=== PATIENT | male | born 1995 | race Caucasian/White ===

== ENCOUNTER 2020-09-14 07:43 | Day surgery (SDC) | payer OTHER ==
[~2020-09-14] VITALS: Ht 182.9 cm; Wt 104.3 kg
[~2020-09-14 07:43] MED LIST: CYCLOBENZAPRINE10 MG PO; IBUPROFEN200 M1 PO; MEN'S ONE DAIL1 EACH PO; VITAMIN D310 MC4 PO
[2020-09-14] MEDS ORDERED: TYLENOL EXTRA500 MG PO (08:02)
--- NOTE | 2020-09-14 08:51 | NUR ---
09/14/20 0851 TAYLOR ART 0844-PATIENT ARRIVED TO PACU. DROWSY, RESPONDS TO VERBAL AN TACTILE STIMULATION. ON 3L 02 NC. BREATHING EVEN AND UNLABORED.
--- NOTE | 2020-09-14 12:36 | OR ---
[facility] [address], [place] [address] Signed DATE OF OPERATION: 09/14/2020 SURGEON: Zina Cesar MD PREOPERATIVE DIAGNOSES: 1. Gastroesophageal reflux disease. 2. Heartburn. 3. Ibuprofen. POSTOPERATIVE DIAGNOSES: 1. Mild to moderate gastroduodenitis. 2. Small hiatal hernia. 3. Retained food in stomach. PROCEDURE: EGD with CLOtest and biopsies of the antrum. ESTIMATED BLOOD LOSS: None. INDICATIONS: Claudia is a 25-year-old young man, who was asked to see me for upper endoscopy. He is describing acid reflux and heartburn. He said he is using Pepcid and Tums with moderate results. He has been using ibuprofen for various aches and pains. 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 I met with Claudia in the office and I gave him a pamphlet on upper endoscopy. We had reviewed the nature of the test along with the risk including, but not limited to gas bloating, crampy abdominal pain, bleeding, perforation requiring surgery, and missed diagnosis. He also understands the need for IV conscious sedation. He had expressed understanding and wished to proceed. PROCEDURE NOTE: Claudia was taken into our endoscopy suite and placed in a supine semi-recumbent position. The posterior oropharynx was anesthetized with lidocaine spray. A bite block was utilized for the case. He was given 7 mg of Versed and 100 mcg of fentanyl to cover the case. The adult gastroscope was introduced and advanced out into the third portion of the duodenum. Unfortunately, he had a moderate amount of retained food in the stomach. It took a few minutes to get past the food and finally into the pyloric bulb and into the duodenum. The duodenum was unremarkable. The pyloric bulb showed patchy erythematous changes but no ulcerations. We went to take a biopsy but our scope slipped back into the antrum. The area was covered in food and we never could get back through Electronically Signed By: ZINA CESAR MD 09/14/20 1236 PATIENT NAME: CLAUDIA SMITH OPERATIVE REPORT DATE OF : [birth year] REPORT #: [id number] PHYSICIAN: ZINA CESAR MD PCP: GERARD COSTA MD REPORT IS CONFIDENTIAL AND NOT TO BE RELEASED WITHOUT AUTHORIZATION [facility] [address], [place] [address] Signed the area into the pyloric bulb. However, the stomach does show moderate diffuse erythematous changes as well. No obvious ulcerations. We went ahead and took a biopsy of the antrum for CLOtest as well as pathologic review. Upon retroflexion of scope, we could see he does have a small hiatal hernia. The scope was withdrawn up through the area of the GE junction, which was compliant without stricture. He had just a little irritation around the Z-line. No Hickman's mucosa, no distal esophagitis. The middle and upper esophagus were unremarkable. After this, the gas was suctioned out and the gastroscope removed. Claudia tolerated the procedure quite well. RECOMMENDATIONS: I will see Claudia back in my office in 7 to 14 days to review his results. He may need to use a proton pump inhibitor and cut back on the ibuprofen. The food in the stomach brings up the question of gastroparesis. Zina Cesar MD ALB/MODL /[id number] cc: Dr. Gerard Cesar MD Copies: ZINA CESAR MD ~ Electronically Signed By: ZINA CESAR MD 09/14/20 1236 PATIENT NAME: CLAUDIA SMITH OPERATIVE REPORT DATE OF : [birth year] REPORT #: [id number] PHYSICIAN: ZINA CESAR MD PCP: GERARD COSTA MD REPORT IS CONFIDENTIAL AND NOT TO BE RELEASED WITHOUT AUTHORIZATION
--- NOTE | 2020-09-18 14:42 | PATH ---
[facility] [address], [place] [address] Signed SPECIMEN(S): A ANTRUM/PYLORUS SPECIMEN SOURCE: A. ANTRUM/PYLORUS CLINICAL HISTORY: Acid reflux. Postop: Gastroduodenitis, hiatal hernia. MICROSCOPIC DESCRIPTION: Histologic sections of all submitted blocks are examined by light microscopy. These findings, together with the gross examination, support the pathologic diagnosis. FINAL PATHOLOGIC DIAGNOSIS: Stomach, antrum/pylorus, biopsy: - Antral/oxyntic mucosa with mild chronic, inactive gastritis. - Negative for Helicobacter organisms on HE stain. - Negative for dysplasia or malignancy. NAL:cml:C2NR GROSS DESCRIPTION: The specimen, labeled "Claudia Smith, #1," and designated on the requisition "antrum/pylorus biopsy," is received in formalin and consists of one mccarthy soft tissue fragment that measures 0.7 cm in greatest dimension. The specimen is entirely submitted in cassette (A1). FB (under the direct supervision of a pathologist) The Gross Description was prepared using a voice recognition system. The report was reviewed for accuracy; however, sound-alike word errors, addition and/or deletions may occur. If there is any question about this report, please contact Client Services. PERFORMING LABORATORY: The technical component was performed by [facility], [address] [place] [id number] (Rug Frame Mounter: Lianna Lara MD; CLIA# [id number]). Professional interpretation was performed by [facility], [address] [address] (CLIA# [id number]). Diagnostician: Mamie Holley MD Pathologist Electronically Signed 09/18/2020 PATIENT NAME: CLAUDIA MSITH PATHOLOGY DATE OF : [birth year] REPORT #: [id number] PHYSICIAN: [facility] PCP: ECTOR COSTA MD REPORT IS CONFIDENTIAL AND NOT TO BE RELEASED WITHOUT AUTHORIZATION [address] [address] Signed Copies: ~ PATIENT NAME: CLAUDIA SMITH PATHOLOGY DATE OF : [birth year] REPORT #: [id number] PHYSICIAN: [facility] PCP: ECTOR COSTA MD REPORT IS CONFIDENTIAL AND NOT TO BE RELEASED WITHOUT AUTHORIZATION
== END 2020-09-14 09:30 | disposition home or self-care (01) ==
LOC: DS 07:43 → OPS 07:43 → DS 09:00 → OPS 09:00
PROVIDERS: ATTEND Colon & Rectal Surgery
PROC: 0DB78ZX Excision of Stomach, Pylorus, Via Natural or Artificial Opening Endoscopic, Diagnostic (ICD-10-PCS; principal; 2020-09-14 09:00)
DX: K21.9 Gastro-esophageal reflux disease without esophagitis (principal); K29.90 Gastroduodenitis, unspecified, without bleeding
CPT/HCPCS: 86677; G0500; J2250; J3010; J7121